=== PATIENT | female | born 2000 | race Caucasian/White ===

== ENCOUNTER 2018-01-09 12:29 | Emergency (ER) | payer OTHER ==
[~2018-01-09] VITALS: Ht 157.5 cm; Wt 56.7 kg
[~2018-01-09 12:29] MED LIST: AMOXICILLI400 MG/5 M PO
[2018-01-09] MEDS ORDERED: SPRINTEC1 EACH (12:47)
[2018-01-09 13:48] LABS: ABSOLUTE EOSINOPHILS 0.1 thou/uL (0.0-0.7); ABSOLUTE LYMPHOCYTES 1.5 thou/uL (0.8-5.3); ABSOLUTE MONOCYTES 0.5 thou/uL (0.0-1.2); BASOPHILS 0.3 %; EOSINOPHILS 1.6 %; HEMATOCRIT 40.3 % (37.0-47.0); HEMOGLOBIN 13.1 gm/dL (12.0-15.0); LYMPHOCYTES 29.3 %; MCH 29.6 pg (26.0-34.0); MCHC 32.6 g/dL (28.0-37.0); MCV 90.8 fL (80.0-100.0); MONOCYTES 9.2 %; MPV 8.2 fl. (7.2-11.1); NUCLEATED RBCS 0 /100WBC; PLATELET COUNT* 174 thou/uL (150-400); POLYS 59.6 %; RBC 4.44 mil/uL (4.20-5.00); RDW-CV 15.6 % (10.5-14.5); WBC 5.1 thou/uL (4.0-11.0)
[2018-01-09 13:50] LABS: URINE BILIRUBIN NEGATIVE (Negative); URINE BLOOD TRACE (Negative); URINE CLARITY CLEAR; URINE COLOR YELLOW; URINE GLUCOSE-RANDOM NEGATIVE (Negative); URINE KETONES NEGATIVE (Negative); URINE LEUKOCYTES NEGATIVE (Negative); URINE NITRITE NEGATIVE (Negative); URINE PROTEIN NEGATIVE (Negative); URINE SPECIFIC GRAVITY 1.025 (1.005-1.030); URINE UROBILINOGEN 0.2 E.U./dl (0.2-1.0)
[2018-01-09 14:03] LABS: CALCIUM 8.5 mg/dL (8.5-10.1); CREATININE 0.6 mg/dL (0.6-1.3); POTASSIUM 3.6 mmol/L (3.5-5.1)
[2018-01-09 14:09] LABS: ALBUMIN 2.9 g/dL (3.4-5.0); TOTAL BILIRUBIN 0.1 mg/dL (<0.1-1.0); TOTAL PROTEIN 6.5 g/dL (6.4-8.2)
[2018-01-09] MEDS ORDERED: CARAFATE1 GM/10 ML PO (15:19)
[2018-01-09] MEDS ORDERED: PROTONIX40 M1 PO (15:19)
[2018-01-09] MEDS ORDERED: ONDANSETRON HCL4 M2 PO (15:20)
[2018-01-09 15:37] VITALS: BP 118/72
== END 2018-01-09 15:38 | disposition home or self-care (01) ==
LOC: M.ERS 12:29
PROVIDERS: Nurse Practitioner Family
DX: R10.13 Epigastric pain (principal); R10.11 Right upper quadrant pain

== ENCOUNTER → 2020-02-22 | Outpatient (CLI) | payer OTHER ==
[~2020-02-22] MED LIST changes: +CARAFATE1 GM/10 ML PO; +MULTIVITAMINS PO; +OMEPRAZOLE 20 M20 M1 PO; +ONDANSETRON HCL4 M2 PO; +PROTONIX40 M1 PO; +SPRINTEC1 EACH; +ZYRTEC10 M2 PO
== END ==
LOC: M.LAB 08:38
PROVIDERS: ATTEND Surgery
DX: U07.1 COVID-19 (principal)

== ENCOUNTER → 2020-02-25 | Day surgery (SDC) | payer OTHER ==
[2020-02-25 13:24] LABS: HEMATOCRIT 38.2 % (37.0-47.0); HEMOGLOBIN 12.9 gm/dL (12.0-15.0)
--- NOTE | 2020-02-28 09:47 | OP ---
[address] [address] OPERATIVE REPORT Name: STELLA ALARCON Room: [facility].#: [id number] Admission: 02/25/20 Attend Phys: Radha Snell DO Discharge: Date of : 89 Report #: [id number] THIS REPORT FOR: cc: Marian Banks Angela Jo RNP ~ Radha Snell DO DATE OF SERVICE: 02/25/2020 PREPROCEDURE DIAGNOSES: Cholecystitis and elevated liver enzymes. POSTPROCEDURE DIAGNOSES: Cholecystitis and elevated liver enzymes. FINDINGS: Significant scarring and cirrhosis of the liver on visual exam, distended gallbladder. SURGEON: Radha Snell DO COSURGEON: Rubens Franz, PGY-1. STUDENT AMBASSADOR: VJ Eagle. PROCEDURES PERFORMED: Laparoscopic cholecystectomy and liver biopsy. ANESTHESIA: General endotracheal, local and TAP's blocks. ESTIMATED BLOOD LOSS: 5 mL. SPECIMENS: Gallbladder and liver biopsies. COMPLICATIONS: None. CONDITION: Stable. DISPOSITION: PACU to home. HISTORY OF PRESENT ILLNESS: The patient is a very pleasant 19-year-old female who presented to my office with complaint of intermittent episodes of upper abdominal pain. She had been found on laboratory workup to have elevated liver enzymes and had actually been seen by manager infusion. 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 Her liver enzymes did improve on followup workup, but it was recommended that she undergo a liver biopsy. She was then consented for laparoscopic cholecystectomy with liver biopsy. Risks discussed included bleeding, infection, pain, scar formation, injury to bowel, liver or bile duct, hernia at the incision sites, need for an open procedure and risks of general anesthesia. The patient understood these risks [place] [address] OPERATIVE REPORT Name: STELLA ALARCON Room: [facility]#: [id number] Admission: 02/25/20 Attend Phys: Radha Snell DO Discharge: Date of : [birth year] Report #: [id number] DESCRIPTION OF PROCEDURE: The patient was brought to the operating room. She was laid supine on the operating room table. SCDs were placed on bilateral lower extremities. Ancef was given in the perioperative period. General endotracheal anesthesia was induced by Anesthesia without difficulty. TAP's blocks were then also provided by Anesthesia without issue. Abdomen was prepped and draped in standard sterile fashion. Timeout was performed to verify patient and procedure. A 10 mL of 0.5% Marcaine were injected in the infraumbilical area. Incision was made with 11 blade. Cautery was used for hemostasis. S retractors were used to visualize the fascia. Fascia was grasped and elevated between 2 Kochers. Fascia was incised using cautery. Peritoneum was bluntly entered using a Glendy clamp. Finger was introduced into the abdomen to assure that there were no prieto-incisional adhesions, none were identified. Two stitches of 0 Vicryl placed on the fascia. Dione trocar was introduced and secured with 0 Vicryl stitches. Abdomen was insufflated. The patient was placed head up and tilted left side down. Camera was introduced and a brief anterior abdominal exploration was undertaken with findings of significant scarring or cirrhosis of the liver. Three 5 mm trocars were introduced, one in the subxiphoid area and two in the right upper quadrant, all under direct visualization. Gallbladder was elevated. Peritoneum overlying the triangle of Calot was incised using cautery. Both duct and artery were very easily visible. Both were circumferentially dissected free using a [place] dissector. Any tissues posterior to the artery were removed. This then afforded the critical view. Duct and artery were both doubly clipped and ligated. Gallbladder was then removed from the liver bed utilizing cautery with no further difficulty. Specimen was placed within an EndoCatch bag. A small aldo incision was made in the right upper quadrant. A percutaneous liver biopsy Gopi-Cut needle was introduced 3 times and liver biopsy was taken without difficulty. All 3 specimens were placed on Telfa pad and handed off for permanent pathology. The sites of the liver biopsy were easily coagulated using cautery. Liver bed was inspected and appeared to be hemostatic. Clips were inspected. They appeared to be intact. There was no bleeding or leakage noted from the area of the clips. Trocars were then removed under direct visualization. There was no bleeding noted from the peritoneum. Abdomen was completely desufflated. Dione trocar was removed and EndoCatch bag was removed with specimen intact. Kochers were placed on the fascia of our infraumbilical port. Previously placed 0 Vicryl stitches were removed and a 0 Vicryl stitch was placed in a [id number] fashion with excellent approximation of the fascia. An additional 10 mL 0.5% Marcaine were injected in the fascia. All wounds were closed with 4-0 Monocryl. A total of 30 mL of 0.5% Marcaine were used to anesthetize the wounds. Wounds were then cleansed and covered with Dermabond. The patient was then allowed to awaken from anesthesia, [place] [address] OPERATIVE REPORT Name: STELLA ALARCON Room: [facility]#: [id number] Admission: 02/25/20 Attend Phys: Radha Snell DO Discharge: Date of : 98 Report #: [id number] transported to the recovery room with no further difficulties. Counts were correct x 2 at the conclusion of the case. <ELECTRONICALLY SIGNED> By: Radha Snell DO 02/28/20 [id number] [id number] Snell DO /nt
== END | disposition home or self-care (01) ==
LOC: M.SUR
PROVIDERS: ATTEND Surgery
DX: K81.1 Chronic cholecystitis (principal); K74.1 Hepatic sclerosis; R94.5 Abnormal results of liver function studies; R10.13 Epigastric pain; K21.9 Gastro-esophageal reflux disease without esophagitis; Z79.899 Other long term (current) drug therapy